=== PATIENT | male | born 2000 | race American Indian/Alaskan Native ===

== ENCOUNTER 2018-02-06 16:45 | Emergency (ER) | payer SELFPAY ==
[2018-02-06 16:52] VITALS: BP 144/68
--- NOTE | 2018-02-06 20:03 | Emergency Department Report ---
ED Abdominal Pain HPI - General Chief Complaint: Abdominal Pain Stated Complaint: ABD PAIN Time Seen by Provider: 02/06/18 19:20 Source: patient Mode of arrival: Ambulatory Limitations: No Limitations - History of Present Illness Initial Comments: This is a 17-year-old -Maur[place] male who presents with umbilical pain for one week. He went to [facility] last Wednesday with bilateral groin pain and diagnosed with urethritis. He was started on doxycycline for 10 days and currently taking medication. Patient reports last bowel movement was last Wednesday and is belly pain started last Wednesday. Patient reports it is very tender to touch around the umbilicus area and pain is radiating to right flank. He is having sharp pains that are radiating to right flank. Pain is 8 out of 10 on pain scale and intermittent. Denies nausea or vomiting, chest pain , burning sensation, diarrhea, and fever. MD Complaint: abdominal pain (umbilicus pain), flank pain (right flank) -: week(s) (one week) Location: periumbilical Radiation: R flank Migration to: no migration Severity: moderate Severity scale (0 -10): 8 Quality: aching, sharp Improves With: nothing Worsens With: movement Context: recent antibiotic use Associated Symptoms: denies other symptoms. denies: nausea, vomiting, diarrhea , fever, constipation, dysuria Treatments Prior to Arrival: other (currently taking doxycycline) - Related Data Previous Rx's Medication Instructions Recorded Last Taken Type Naproxen [Naprosyn] 500 mg PO Q6H PRN #20 tablet 02/06/18 Unknown Rx Allergies Allergy/AdvReac Type Severity Reaction Status Date / Time No Known Allergies Allergy Unverified 02/06/18 16:46 ED Review of Systems ROS: Stated complaint: ABD PAIN Other details as noted in HPI Constitutional: denies: chills, fever Cardiovascular: denies: chest pain, palpitations Endocrine: no symptoms reported Gastrointestinal: abdominal pain (umbilical pain). denies: nausea, vomiting, diarrhea Genitourinary: denies: urgency, dysuria, frequency, hematuria, discharge Neurological: denies: headache, weakness, paresthesias Psychiatric: denies: anxiety, depression ED Past Medical Hx - Past Medical History Previous Medical History?: No - Surgical History Past Surgical History?: No - Social History Smoking Status: Never Smoker Substance Use Type: None - Medications Home Medications: Home Medications Medication Instructions Recorded Confirmed Last Taken Type Naproxen [Naprosyn] 500 mg PO Q6H PRN #20 tablet 02/06/18 Unknown Rx ED Physical Exam - General Limitations: No Limitations General appearance: alert, in no apparent distress - Respiratory Respiratory exam: Present: normal lung sounds bilaterally. Absent: respiratory distress - Cardiovascular Cardiovascular Exam: Present: regular rate, normal rhythm, normal heart sounds. Absent: systolic murmur, diastolic murmur, rubs, gallop - GI/Abdominal GI/Abdominal exam: Present: soft, tenderness (around umbilicus), normal bowel sounds. Absent: distended, guarding, rebound, rigid, organomegaly, mass, bruit - Neurological Exam Neurological exam: Present: alert, oriented X3, normal gait - Psychiatric Psychiatric exam: Present: normal affect, normal mood - Skin Skin exam: Present: warm, dry, intact, normal color. Absent: rash ED Course Vital Signs 02/06/18 16:46 Temperature 98.9 F Pulse Rate 90 Respiratory 18 Rate Blood Pressure 144/68 O2 Sat by Pulse 99 Oximetry ED Medical Decision Making - Lab Data Result diagrams: 02/06/18 20:09 02/06/18 20:09 - Radiology Data Radiology results: report reviewed CT of abdomen and pelvis without contrast: No acute intra-abdominal process noted. Small umbilical hernia containing only fat. - Medical Decision Making This is a 17-year-old -Maur[place] male who presents with umbilical pain for one week. Patient examined by me and stable. No distress noted. Vitals stable. Obtain a CMP, CBC, lipase, and CT of abdomen and pelvis without contrast. All labs are remarkable. CT of abdomen impression no acute intra- abdominal process noted. Small umbilical hernia containing only fat. Instructed to take NSAIDs for pain control. Follow-up with primary care provider and gastroenterology. Start naproxen for pain. Discussed plan with patient and he agreed with plan to treat outpatient. Discharged home. Follow up with PCP in 48-72 hours. Critical care attestation.: If time is entered above; I have spent that time in minutes in the direct care of this critically ill patient, excluding procedure time. ED Disposition Clinical Impression: Umbilical pain Umbilical hernia Qualifiers: Obstruction and gangrene presence: without obstruction or gangrene Qualified Code(s): K42.9 - Umbilical hernia without obstruction or gangrene Disposition: TO HOME OR SELFCARE Is pt being admited?: No Does the pt Need Aspirin: No Condition: Stable Instructions: Umbilical Hernia (ED) Additional Instructions: Take naproxen every 6 hours for pain if needed. Follow-up with gastroenterology if symptoms increase. Follow-up with primary care provider in 2-3 days. Return to the ER if severe pain, fever, chest pain, and shortness of breath. Prescriptions: Naproxen [Naprosyn] 500 mg PO Q6H PRN #20 tablet PRN Reason: Pain Referrals: [facility] [Outside] - 3-5 Days [facility] [Outside] - 3-5 Days [facility] [Outside] - 3-5 Days [facility] [Provider Group] - 3-5 Days Time of Disposition: 22:06 Print Language: FRISIAN
[2018-02-06 20:16] LABS: Hematocrit 50.5 % (35.5-45.6); Hemoglobin 16.7 gm/dl (11.8-15.2); Mean Corpuscular HGB Conc 33 % (32-34); Mean Corpuscular Hemoglobin 29 pg (28-32); Mean Corpuscular Volume 86 fl (84-94); Platelet Count 260 K/mm3 (140-440); Red Blood Count 5.86 M/mm3 (3.65-5.03); Red Cell Distribution Width 12.6 % (13.2-15.2)
[2018-02-06 20:45] LABS: Alanine Aminotransferase 32 units/L (7-56); Albumin 4.5 g/dL (3.9-5); BUN/Creatinine Ratio 13; Blood Urea Nitrogen 10 mg/dL (9-20); Calcium 9.8 mg/dL (8.4-10.2); Hemolysis Index 3; Lipase 40 units/L (13-60)
--- NOTE | 2018-02-06 21:00 | Cat Scan Report ---
FINAL REPORT EXAM: CT ABDOMEN PELVIS WO CON HISTORY: umbilical tenderness TECHNIQUE: Standard unenhanced CT of the abdomen and pelvis. Coronal and sagittal reconstruction was also performed. PRIORS: None. FINDINGS: Within the abdomen, the liver, spleen, pancreas, gallbladder, adrenal glands, and kidneys are unremarkable. No evidence for retroperitoneal or pelvic lymphadenopathy is seen. The bowel loops have normal caliber. No soft tissue mass, fluid collection, inflammatory change, or free air is seen within the abdomen or pelvis. The appendix is normal. There is a small umbilical hernia containing only fat. Within the pelvis, the bladder is unremarkable. The prostate is normal. No evidence for mass or lymphadenopathy is seen in the pelvis. Images through the upper abdomen include the lung bases which are expanded and clear. Bony structures show no focal abnormalities and are intact. IMPRESSION: No acute intra-abdominal process noted. Small umbilical hernia containing only fat.
== END 2018-02-06 22:10 | disposition home or self-care (01) ==
LOC: ED 16:45
DX: K42.9 Umbilical hernia without obstruction or gangrene (principal); R10.33 Periumbilical pain
CPT/HCPCS: 36415; 74176; 80053; 83690; 85027

== ENCOUNTER 2019-05-28 14:38 | Emergency (ER) | payer OTHER ==
--- NOTE | 2019-05-28 14:59 | Event Note ---
ED Screening Note Date of service: 05/28/19 Time: 14:56 ED Screening Note: This is a 18 y.o. M. that presents to the ER with chest pain radiating to back and SOB. PMH of asthma Denies chills, fever, cough, and palpitations. This initial assessment/diagnostic orders/clinical plan/treatment(s) is/are subject to change based on patients health status, clinical progression and re- assessment by fellow clinical providers in the ED. Further treatment and workup at subsequent clinical providers discretion. Patient/guardian urged not to elope from the ED as their condition may be serious if not clinically assessed and managed. Initial orders include: CXR
--- NOTE | 2019-05-28 15:22 | XRay Report ---
CHEST 1 VIEW INDICATION: chest pain. Generalized chest pain for the past 2 weeks COMPARISON: None FINDINGS: Support devices: None. Heart: Within normal limits. Lungs/Pleura: No acute air space or interstitial disease. Additional findings: None. IMPRESSION: 1. No acute findings. Signer Name: Ranjith Sosa MD Signed: 05/28/2019 3:18 PM Workstation Name: [id number]
[2019-05-28] MEDS ORDERED: IBUPROFEN PO ONE (15:57)
[2019-05-28 16:15] LABS: Basophils # (Auto) 0.1 K/mm3 (0.0-0.1); Basophils % (Auto) 1.4 % (0.0-1.8); Eosinophils % (Auto) 0.8 % (0.0-4.3); Hemoglobin 16.9 gm/dl (11.8-15.2); Lymphocytes # (Auto) 2.2 K/mm3 (1.2-5.4); Lymphocytes % (Auto) 47.8 % (13.4-35.0); Mean Corpuscular HGB Conc 34 % (32-34); Mean Corpuscular Volume 87 fl (84-94); Monocytes # (Auto) 0.5 K/mm3 (0.0-0.8); Monocytes % (Auto) 9.8 % (0.0-7.3); Platelet Count 225 K/mm3 (140-440); Red Blood Count 5.73 M/mm3 (3.65-5.03); Red Cell Distribution Width 12.9 % (13.2-15.2)
[2019-05-28 16:34] LABS: BUN/Creatinine Ratio 14; Blood Urea Nitrogen 14 mg/dL (9-20); Calcium 9.7 mg/dL (8.4-10.2); Hemolysis Index 12
--- NOTE | 2019-05-28 17:29 | Emergency Department Report ---
<JOSHUA STOVER - Last Filed: 05/28/19 18:06> ED Chest Pain HPI - General Chief Complaint: Upper Respiratory Infection Stated Complaint: FRANKY/CHEST PAIN Time Seen by Provider: 05/28/19 14:56 Source: patient Mode of arrival: Ambulatory Limitations: No Limitations - History of Present Illness Initial Comments: This is a 18-year-old male nontoxic, well nourished in appearance, no acute signs of distress presents to the ED with c/o of midsternum chest pain, some SOB. Patient also stated that chest pain radiates to back. Patient describes pain as aching intermittently. Patient denies any hemoptysis, fever, chills, nausea, vomiting, headache, stiff neck, numbness, tingling, abdominal pain. Patient denies pleuritic chest pain. Patient denies any recent travels or long car rides. Patient denies any recent surgeries or any sick contacts. Patient denies any drug allergies and PMH. MD Complaint: chest pain -: week(s) (2) Pain Location: substernal Pain Radiation: back Severity: mild Quality: aching Consistency: constant Improves With: nothing Worsens With: other (cough) re: denies: nausea, vomting, diaphoresis, dyspnea, sense of impending doom Other Symptoms: denies: cough, fever, syncope, rash, acid taste in mouth, leg swelling, palpitations, burping Treatments Prior to Arrival: none Aspirin use within the Past 7 Days: (0) No - Related Data Previous Rx's Medication Instructions Recorded Last Taken Type Naproxen [Naprosyn] 500 mg PO Q6H PRN #20 tablet 02/06/18 Unknown Rx Allergies Allergy/AdvReac Type Severity Reaction Status Date / Time No Known Allergies Allergy Unverified 02/06/18 16:46 Heart Score - HEART Score History: Slightly suspicious EKG: Normal Age: < 45 Risk factors: No known risk factors Troponin: < normal limit HEART Score: 0 ED Review of Systems Constitutional: denies: chills, fever Eyes: denies: eye pain, eye discharge, vision change ENT: denies: ear pain, throat pain Respiratory: shortness of breath. denies: cough, wheezing Cardiovascular: chest pain. denies: palpitations Endocrine: no symptoms reported Gastrointestinal: denies: abdominal pain, nausea, diarrhea Genitourinary: denies: urgency, dysuria Musculoskeletal: denies: back pain, joint swelling, arthralgia Skin: denies: rash, lesions Neurological: denies: headache, weakness, paresthesias Psychiatric: denies: anxiety, depression Hematological/Lymphatic: denies: easy bleeding, easy bruising ED Past Medical Hx - Past Medical History Previous Medical History?: No - Surgical History Past Surgical History?: No - Social History Smoking Status: Current Every Day Smoker Substance Use Type: None - Medications Home Medications: Home Medications Medication Instructions Recorded Confirmed Last Taken Type Naproxen [Naprosyn] 500 mg PO Q6H PRN #20 tablet 02/06/18 Unknown Rx ED Physical Exam - General Limitations: No Limitations General appearance: alert, in no apparent distress - Head Head exam: Present: atraumatic, normocephalic - Eye Eye exam: Present: normal appearance - Neck Neck exam: Present: normal inspection, full ROM. Absent: tenderness, meningismus, lymphadenopathy - Respiratory Respiratory exam: Present: normal lung sounds bilaterally. Absent: respiratory distress, wheezes, rales, rhonchi, stridor, chest wall tenderness, accessory muscle use, decreased breath sounds, prolonged expiratory - Cardiovascular Cardiovascular Exam: Present: regular rate, normal rhythm, normal heart sounds. Absent: bradycardia, tachycardia, irregular rhythm, systolic murmur, diastolic murmur, rubs, gallop - Extremities Exam Extremities exam: Present: normal inspection, full ROM - Back Exam Back exam: Present: normal inspection, full ROM. Absent: tenderness, CVA tenderness (R), CVA tenderness (L), muscle spasm, paraspinal tenderness, vertebral tenderness, rash noted - Neurological Exam Neurological exam: Present: alert, oriented X3, normal gait - Psychiatric Psychiatric exam: Present: normal affect, normal mood - Skin Skin exam: Present: warm, dry, intact, normal color. Absent: rash ED Course - Reevaluation(s) Reevaluation #1: 05/28/19 17:27 Patient is speaking in full sentences with no signs of distress noted. - Consultations Consultation #1: 05/28/19 17:45 Patient has been consulted with Gia Mckinney about patient history, physical exam, and labs/EKG results and agrees for d-dimmer and further work-up. Consultation #2: 05/28/19 17:[address] Patient's signout to Dr. Alisha Carmichael for further evaluation and treatment. JUSTIN score - Justin Score Age > 65: (0) No Aspirin use within the Past 7 Days: (0) No 3 or more CAD Risk Factors: (0) No 2 or more Angina events in past 24 hrs: (0) No Known CAD with more than 50% Stenosis: (0) No Elevated Cardiac Markers: (0) No ST Deviation Greater than 0.5mm: (0) No JUSTIN Score: 0 ED Medical Decision Making - Lab Data Result diagrams: 05/28/19 16:03 05/28/19 16:03 - Medical Decision Making 18-year-old male that presents with chest pain and shortness of breath. Patient is currently stable. Patient had a abnormal EKG. Blood work has been obtai mel. Pending a d-dimer. Patient signout to Dr. Carmichael. 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 Return to the emergency department any acute change or worsening. Referrals: PRIMARY MD JAGJIT [Primary Care Provider] - 3-5 Days [facility] [Provider Group] - 3-5 Days AMANDA JEWELL MD [Staff Physician] - 3-5 Days <ALISHA CARMICHAEL - Last Filed: 05/28/19 19:59> ED Chest Pain HPI - History of Present Illness Initial Comments: The patient states that he's had 2 types of chest pain for over a week. It is a soreness in his left chest which is exacerbated by bending or lifting. He states he's able to perform heavy exertion at work ordinarily. However today he came home from work because his chest was sore with movement. He also complained of some shortness of breath which he states is persistent although his pulse oximetry is 100% and his work of breathing is normal. The other type chest pain is more towards the central location and nonradiating nonpleuritic and described as a burning. -: week(s) Pain Radiation: none ED Review of Systems ROS: Stated complaint: FRANKY/CHEST PAIN Other details as noted in HPI ED Course Vital Signs 05/28/19 05/28/19 05/28/19 14:56 18:16 19:00 Temperature 98.5 F Pulse Rate 67 80 77 Respiratory 20 8 L 11 L Rate Blood Pressure 122/68 135/77 128/71 O2 Sat by Pulse 100 100 82 L Oximetry 05/28/19 05/28/19 19:30 19:41 Temperature 98 F Pulse Rate 69 Respiratory 9 L Rate Blood Pressure 132/68 O2 Sat by Pulse 100 Oximetry ED Medical Decision Making - Lab Data Result diagrams: 05/28/19 16:03 05/28/19 16:03 Laboratory Results - last 24 hr 05/28/19 05/28/19 16:03 16:03 WBC 4.7 RBC 5.73 H Hgb 16.9 H Hct 50.0 H MCV 87 MCH 30 MCHC 34 RDW 12.9 L Plt Count 225 Lymph % (Auto) 47.8 H [place] % (Auto) 9.8 H Eos % (Auto) 0.8 Baso % (Auto) 1.4 Lymph # 2.2 [place] # 0.5 Eos # 0.0 Baso # 0.1 Seg Neutrophils % 40.2 Seg Neutrophils # 1.9 Sodium 138 Potassium 4.6 Chloride 99.5 Carbon Dioxide 25 Anion Gap 18 BUN 14 Creatinine 1.0 Estimated GFR > 60 BUN/Creatinine Ratio 14 Glucose 90 Calcium 9.7 Troponin T < 0.010 Laboratory Results - last 24 hr 05/28/19 05/28/19 16:03 16:03 WBC 4.7 RBC 5.73 H Hgb 16.9 H Hct 50.0 H MCV 87 MCH 30 MCHC 34 RDW 12.9 L Plt Count 225 Lymph % (Auto) 47.8 H [place] % (Auto) 9.8 H Eos % (Auto) 0.8 Baso % (Auto) 1.4 Lymph # 2.2 [place] # 0.5 Eos # 0.0 Baso # 0.1 Seg Neutrophils % 40.2 Seg Neutrophils # 1.9 Sodium 138 Potassium 4.6 Chloride 99.5 Carbon Dioxide 25 Anion Gap 18 BUN 14 Creatinine 1.0 Estimated GFR > 60 BUN/Creatinine Ratio 14 Glucose 90 Calcium 9.7 Troponin T < 0.010 Laboratory Results - last 24 hr 05/28/19 05/28/19 16:03 16:03 WBC 4.7 RBC 5.73 H Hgb 16.9 H Hct 50.0 H MCV 87 MCH 30 MCHC 34 RDW 12.9 L Plt Count 225 Lymph % (Auto) 47.8 H [place] % (Auto) 9.8 H Eos % (Auto) 0.8 Baso % (Auto) 1.4 Lymph # 2.2 [place] # 0.5 Eos # 0.0 Baso # 0.1 Seg Neutrophils % 40.2 Seg Neutrophils # 1.9 Sodium 138 Potassium 4.6 Chloride 99.5 Carbon Dioxide 25 Anion Gap 18 BUN 14 Creatinine 1.0 Estimated GFR > 60 BUN/Creatinine Ratio 14 Glucose 90 Calcium 9.7 Troponin T < 0.010 Laboratory Results - last 24 hr 05/28/19 05/28/19 16:03 16:03 WBC 4.7 RBC 5.73 H Hgb 16.9 H Hct 50.0 H MCV 87 MCH 30 MCHC 34 RDW 12.9 L Plt Count 225 Lymph % (Auto) 47.8 H [place] % (Auto) 9.8 H Eos % (Auto) 0.8 Baso % (Auto) 1.4 Lymph # 2.2 [place] # 0.5 Eos # 0.0 Baso # 0.1 Seg Neutrophils % 40.2 Seg Neutrophils # 1.9 Sodium 138 Potassium 4.6 Chloride 99.5 Carbon Dioxide 25 Anion Gap 18 BUN 14 Creatinine 1.0 Estimated GFR > 60 BUN/Creatinine Ratio 14 Glucose 90 Calcium 9.7 Troponin T < 0.010 Laboratory Results - last 24 hr 05/28/19 05/28/19 05/28/19 04:34 16:03 16:03 WBC 4.7 RBC 5.73 H Hgb 16.9 H Hct 50.0 H MCV 87 MCH 30 MCHC 34 RDW 12.9 L Plt Count 225 Lymph % (Auto) 47.8 H [place] % (Auto) 9.8 H Eos % (Auto) 0.8 Baso % (Auto) 1.4 Lymph # 2.2 [place] # 0.5 Eos # 0.0 Baso # 0.1 Seg Neutrophils % 40.2 Seg Neutrophils # 1.9 PT 13.2 INR 1.03 Sodium 138 Potassium 4.6 Chloride 99.5 Carbon Dioxide 25 Anion Gap 18 BUN 14 Creatinine 1.0 Estimated GFR > 60 BUN/Creatinine Ratio 14 Glucose 90 Calcium 9.7 Troponin T < 0.010 Laboratory Results - last 24 hr 05/28/19 05/28/19 05/28/19 04:34 16:03 16:03 WBC 4.7 RBC 5.73 H Hgb 16.9 H Hct 50.0 H MCV 87 MCH 30 MCHC 34 RDW 12.9 L Plt Count 225 Lymph % (Auto) 47.8 H [place] % (Auto) 9.8 H Eos % (Auto) 0.8 Baso % (Auto) 1.4 Lymph # 2.2 [place] # 0.5 Eos # 0.0 Baso # 0.1 Seg Neutrophils % 40.2 Seg Neutrophils # 1.9 PT 13.2 INR 1.03 APTT 26.4 Sodium 138 Potassium 4.6 Chloride 99.5 Carbon Dioxide 25 Anion Gap 18 BUN 14 Creatinine 1.0 Estimated GFR > 60 BUN/Creatinine Ratio 14 Glucose 90 Calcium 9.7 Troponin T < 0.010 05/28/19 18:12 WBC RBC Hgb Hct MCV MCH MCHC RDW Plt Count Lymph % (Auto) [place] % (Auto) Eos % (Auto) Baso % (Auto) Lymph # [place] # Eos # Baso # Seg Neutrophils % Seg Neutrophils # PT INR APTT Sodium Potassium Chloride Carbon Dioxide Anion Gap BUN Creatinine Estimated GFR BUN/Creatinine Ratio Glucose Calcium Troponin T < 0.010 Laboratory Results - last 24 hr 05/28/19 05/28/19 05/28/19 04:34 16:03 16:03 WBC 4.7 RBC 5.73 H Hgb 16.9 H Hct 50.0 H MCV 87 MCH 30 MCHC 34 RDW 12.9 L Plt Count 225 Lymph % (Auto) 47.8 H [place] % (Auto) 9.8 H Eos % (Auto) 0.8 Baso % (Auto) 1.4 Lymph # 2.2 [place] # 0.5 Eos # 0.0 Baso # 0.1 Seg Neutrophils % 40.2 Seg Neutrophils # 1.9 PT 13.2 INR 1.03 APTT 26.4 Sodium 138 Potassium 4.6 Chloride 99.5 Carbon Dioxide 25 Anion Gap 18 BUN 14 Creatinine 1.0 Estimated GFR > 60 BUN/Creatinine Ratio 14 Glucose 90 Calcium 9.7 Troponin T < 0.010 05/28/19 18:12 WBC RBC Hgb Hct MCV MCH MCHC RDW Plt Count Lymph % (Auto) [place] % (Auto) Eos % (Auto) Baso % (Auto) Lymph # [place] # Eos # Baso # Seg Neutrophils % Seg Neutrophils # PT INR APTT Sodium Potassium Chloride Carbon Dioxide Anion Gap BUN Creatinine Estimated GFR BUN/Creatinine Ratio Glucose Calcium Troponin T < 0.010 Laboratory Results - last 24 hr 05/28/19 05/28/19 05/28/19 04:34 16:03 16:03 WBC 4.7 RBC 5.73 H Hgb 16.9 H Hct 50.0 H MCV 87 MCH 30 MCHC 34 RDW 12.9 L Plt Count 225 Lymph % (Auto) 47.8 H [place] % (Auto) 9.8 H Eos % (Auto) 0.8 Baso % (Auto) 1.4 Lymph # 2.2 [place] # 0.5 Eos # 0.0 Baso # 0.1 Seg Neutrophils % 40.2 Seg Neutrophils # 1.9 PT 13.2 INR 1.03 APTT 26.4 Sodium 138 Potassium 4.6 Chloride 99.5 Carbon Dioxide 25 Anion Gap 18 BUN 14 Creatinine 1.0 Estimated GFR > 60 BUN/Creatinine Ratio 14 Glucose 90 Calcium 9.7 Troponin T < 0.010 05/28/19 18:12 WBC RBC Hgb Hct MCV MCH MCHC RDW Plt Count Lymph % (Auto) [place] % (Auto) Eos % (Auto) Baso % (Auto) Lymph # [place] # Eos # Baso # Seg Neutrophils % Seg Neutrophils # PT INR APTT Sodium Potassium Chloride Carbon Dioxide Anion Gap BUN Creatinine Estimated GFR BUN/Creatinine Ratio Glucose Calcium Troponin T < 0.010 Laboratory Results - last 24 hr 05/28/19 05/28/19 05/28/19 04:34 16:03 16:03 WBC 4.7 RBC 5.73 H Hgb 16.9 H Hct 50.0 H MCV 87 MCH 30 MCHC 34 RDW 12.9 L Plt Count 225 Lymph % (Auto) 47.8 H [place] % (Auto) 9.8 H Eos % (Auto) 0.8 Baso % (Auto) 1.4 Lymph # 2.2 [place] # 0.5 Eos # 0.0 Baso # 0.1 Seg Neutrophils % 40.2 Seg Neutrophils # 1.9 PT 13.2 INR 1.03 APTT 26.4 D-Dimer < 135 Sodium 138 Potassium 4.6 Chloride 99.5 Carbon Dioxide 25 Anion Gap 18 BUN 14 Creatinine 1.0 Estimated GFR > 60 BUN/Creatinine Ratio 14 Glucose 90 Calcium 9.7 Troponin T < 0.010 05/28/19 18:12 WBC RBC Hgb Hct MCV MCH MCHC RDW Plt Count Lymph % (Auto) [place] % (Auto) Eos % (Auto) Baso % (Auto) Lymph # [place] # Eos # Baso # Seg Neutrophils % Seg Neutrophils # PT INR APTT D-Dimer Sodium Potassium Chloride Carbon Dioxide Anion Gap BUN Creatinine Estimated GFR BUN/Creatinine Ratio Glucose Calcium Troponin T < 0.010 - EKG Data -: EKG Interpreted by Wy EKG shows normal: sinus rhythm (sinus arrhythmia) Rate: normal - EKG Data Interpretation: other (early repolarization) - Radiology Data Radiology results: report reviewed (no acute process), image reviewed Critical care attestation.: If time is entered above; I have spent that time in minutes in the direct care of this critically ill patient, excluding procedure time. ED Disposition Is pt being admited?: No Does the pt Need Aspirin: No Time of Disposition: 19:54
[2019-05-28 19:00] LABS: INR 1.03 (0.87-1.13)
[2019-05-28 19:20] LABS: Partial Thromboplastin Time 26.4 Sec. (24.2-36.6)
[2019-05-28 20:03] VITALS: BP 133/74
== END 2019-05-28 20:11 | disposition home or self-care (01) ==
LOC: ED 14:38
DX: I49.9 Cardiac arrhythmia, unspecified (principal); F17.200 Nicotine dependence, unspecified, uncomplicated; Z79.899 Other long term (current) drug therapy
CPT/HCPCS: 36415; 71045; 80048; 84484; 85025; 85379; 85610; 85730; 93005; 93010; 99284

== ENCOUNTER 2021-04-18 08:45 | Emergency (ER) | payer OTHER ==
[2021-04-18 09:43] VITALS: BP 143/86
--- NOTE | 2021-04-18 12:37 | Emergency Department Report ---
- General Chief Complaint: Dyspnea/Respdistress Stated Complaint: COVID +/COUGH/CP Time Seen by Provider: 04/18/21 12:33 Source: patient Mode of arrival: Ambulatory Limitations: No Limitations - History of Present Illness Initial Comments: Patient is a 20-year-old male presents emergency room with complaints of a cough that began 6 days ago. States he is currently positive for COVID-19. He did not receive COVID-19 vaccination. He has associated chest congestion and chest tightness and diarrhea. He denies any fever, pleuritic chest pain, leg swelling, shortness of breath, vomiting. No past medical history. No allergies to medicines. - Related Data Previous Rx's Medication Instructions Recorded Last Taken Type Naproxen [Naprosyn] 500 mg PO Q6H PRN #20 tablet 02/06/18 Unknown Rx Amoxicillin/Potassium Clav 1 each PO BID 7 Days #14 tablet 04/18/21 Unknown Rx [Augmentin 875-125 Tablet] Azithromycin [Zithromax TAB] 250 mg PO QDAY 5 Days #6 tablet 04/18/21 Unknown Rx Benzonatate [Tessalon Perles] 100 mg PO Q8HR PRN #12 capsule 04/18/21 Unknown Rx guaiFENesin ER [Mucinex ER] 600 mg PO Q12H #14 tablet.er 04/18/21 Unknown Rx Allergies Allergy/AdvReac Type Severity Reaction Status Date / Time No Known Allergies Allergy Unverified 02/06/18 16:46 ED Review of Systems ROS: Stated complaint: COVID +/COUGH/CP Other details as noted in HPI Comment: All other systems reviewed and negative ED Past Medical Hx - Past Medical History Previous Medical History?: No - Surgical History Past Surgical History?: No - Social History Smoking Status: Current Every Day Smoker Substance Use Type: None - Medications Home Medications: Home Medications Medication Instructions Recorded Confirmed Last Taken Type Naproxen [Naprosyn] 500 mg PO Q6H PRN #20 tablet 02/06/18 Unknown Rx Amoxicillin/Potassium Clav 1 each PO BID 7 Days #14 tablet 04/18/21 Unknown Rx [Augmentin 875-125 Tablet] Azithromycin [Zithromax TAB] 250 mg PO QDAY 5 Days #6 tablet 04/18/21 Unknown Rx Benzonatate [Tessalon Perles] 100 mg PO Q8HR PRN #12 capsule 04/18/21 Unknown Rx guaiFENesin ER [Mucinex ER] 600 mg PO Q12H #14 tablet.er 04/18/21 Unknown Rx ED Physical Exam - General Limitations: No Limitations General appearance: alert, in no apparent distress - Head Head exam: Present: atraumatic, normocephalic - Eye Eye exam: Present: normal appearance - ENT ENT exam: Present: mucous membranes moist - Respiratory Respiratory exam: Present: normal lung sounds bilaterally. Absent: respiratory distress, wheezes, rales, rhonchi, stridor, chest wall tenderness, accessory muscle use, decreased breath sounds, prolonged expiratory - Cardiovascular Cardiovascular Exam: Present: regular rate, normal rhythm, normal heart sounds. Absent: systolic murmur, diastolic murmur, rubs, gallop - Neurological Exam Neurological exam: Present: alert, oriented X3 - Psychiatric Psychiatric exam: Present: normal affect, normal mood - Skin Skin exam: Present: warm, dry, intact ED Course Vital Signs 04/18/21 09:42 Temperature 98.2 F Pulse Rate 69 Respiratory 18 Rate Blood Pressure 143/86 [Right] O2 Sat by Pulse 98 Oximetry ED Medical Decision Making - Radiology Data Radiology results: report reviewed Ordering Physician: DENA MATHIS Date of Service: 04/18/21 Procedure(s): XR chest routine 2V Accession Number(s): [id number] cc: DENA MATHIS Fluoro Time In Minutes: CHEST PA AND LATERAL VIEWS INDICATION: cough, chest tightness. COMPARISON: 05/28/2019. FINDINGS: Support devices: None. Heart: Within normal limits. Lungs/Pleura: Within the inferior right upper lobe there is mild peribronchovascular reticular disease. Left lung is clear. No pleural abnormality. IMPRESSION: 1. Probable mild lower airways disease in the inferior right upper lobe. Signer Name: Benny Thompson MD Signed: 04/18/2021 1:16 PM Workstation Name: [id number] Transcribed By: KENNETH Dictated By: Benny Thompson MD Electronically Authenticated By: Benny Thompson MD Signed Date/Time: 04/18/21 1316 DD/ 1315 TD/TT: Print - Medical Decision Making Patient is a 20-year-old male presents emergency room with complaints of a cough that began 6 days ago. States he is currently positive for COVID-19. He did not receive COVID-19 vaccination. He has associated chest congestion and chest tightness and diarrhea. He denies any fever, pleuritic chest pain, leg swelling, shortness of breath, vomiting. No past medical history. No allergies to medicines. VSS. No abnormality on physical examination as documented chart. Chest x-ray: 1. Probable mild lower airways disease in the inferior right upper lobe. Patient is afebrile, no hypoxia, no tachycardia. Discussed all results with patient. Patient does not meet admission criteria for COVID-19 at this time. Discussed very strict return precautions with patient. Patient given prescription for medication. Advised patient Please take medication as prescribed. Follow-up with your primary care doctor. Please self quarantine from 10 days from the onset of your symptoms. Return to emergency room immediat carlo for any new or worsening symptoms including but not limited to worsening chest pain, shortness of breath, vomiting, unable to tolerate by mouth intake, etc. Critical care attestation.: If time is entered above; I have spent that time in minutes in the direct care of this critically ill patient, excluding procedure time. ED Disposition Clinical Impression: COVID-19 PNA (pneumonia) Qualifiers: Pneumonia type: due to unspecified organism Laterality: right Lung location: upper lobe of lung Qualified Code(s): J18.9 - Pneumonia, unspecified organism Disposition: DC-01 TO HOME OR SELFCARE Is pt being admited?: No Does the pt Need Aspirin: No Condition: Stable Instructions: COVID-19, Community-Acquired Pneumonia, Adult, Bacterial Pneumonia (ED) Additional Instructions: Please take medication as prescribed. Follow-up with your primary care doctor. Please self quarantine from 10 days from the onset of your symptoms. Return to emergency room immediately for any new or worsening symptoms including but not limited to worsening chest pain, shortness of breath, vomiting, unable to tolerate by mouth intake, etc. Prescriptions: Amoxicillin/Potassium Clav [Augmentin 875-125 Tablet] 1 each PO BID 7 Days #14 tablet guaiFENesin ER [Mucinex ER] 600 mg PO Q12H #14 tablet.er Benzonatate [Tessalon Perles] 100 mg PO Q8HR PRN #12 capsule PRN Reason: cough Azithromycin [Zithromax TAB] 250 mg PO QDAY 5 Days #6 tablet Referrals: CARBUCCIA,MURRAY, MD [Staff Physician] - 2-3 Days [facility] [Provider Group] - 2-3 Days Time of Disposition: 13:26 Print Language: SERBIAN
--- NOTE | 2021-04-18 13:20 | XRay Report ---
CHEST PA AND LATERAL VIEWS INDICATION: cough, chest tightness. COMPARISON: 05/28/2019. FINDINGS: Support devices: None. Heart: Within normal limits. Lungs/Pleura: Within the inferior right upper lobe there is mild peribronchovascular reticular diseas e. Left lung is clear. No pleural abnormality. IMPRESSION: 1. Probable mild lower airways disease in the inferior right upper lobe. Signer Name: Benny Thompson MD Signed: 04/18/2021 1:16 PM Workstation Name: [id number]
== END 2021-04-18 13:52 | disposition home or self-care (01) ==
LOC: ED 08:45
DX: U07.1 COVID-19 (principal); J18.9 Pneumonia, unspecified organism; F17.200 Nicotine dependence, unspecified, uncomplicated; Z79.899 Other long term (current) drug therapy
CPT/HCPCS: 71046

== ENCOUNTER 2021-05-15 16:00 | Emergency (ER) | payer OTHER ==
--- NOTE | 2021-05-15 16:29 | Event Note ---
ED Screening Note Date of service: 05/15/21 Time: 16:28 ED Screening Note: 20-year-old -[place] male presents to the emergency room complaining of chest pressure and pain that radiates to the right side of his chest. Patient reports he tested positive for Covid. He retested yesterday and was negative. It was noted that patient is tachycardic. This initial assessment/diagnostic orders/clinical plan/treatment(s) is/are subject to change based on patients health status, clinical progression and re- assessment by fellow clinical providers in the ED. Further treatment and workup at subsequent clinical providers discretion. Patient/guardian urged not to elope from the ED as their condition may be serious if not clinically assessed and managed. Initial orders include: EKG chest x-ray and D-dimer has been ordered.
--- NOTE | 2021-05-15 16:57 | XRay Report ---
CHEST PA AND LATERAL VIEWS INDICATION: CP. COMPARISON: 04/18/2021 FINDINGS: Support devices: None. Heart: Within normal limits. Lungs/Pleura: No acute pulmonary or pleural findings. IMPRESSION: 1. No acute findings. Signer Name: Benny Thompson MD Signed: 05/15/2021 4:53 PM Workstation Name: [id number]
[2021-05-15 18:12] LABS: Basophils # (Auto) 0.1 K/mm3 (0.0-0.1); Basophils % (Auto) 1.2 % (0.0-1.8); Eosinophils % (Auto) 0.5 % (0.0-4.3); Hematocrit 49.7 % (35.5-45.6); Hemoglobin 16.7 gm/dl (11.8-15.2); Lymphocytes # (Auto) 1.4 K/mm3 (1.2-5.4); Lymphocytes % (Auto) 33.5 % (13.4-35.0); Mean Corpuscular HGB Conc 34 % (32-34); Mean Corpuscular Volume 88 fl (84-94); Monocytes # (Auto) 0.4 K/mm3 (0.0-0.8); Monocytes % (Auto) 10.1 % (0.0-7.3); Platelet Count 186 K/mm3 (140-440); Red Blood Count 5.67 M/mm3 (3.65-5.03); Red Cell Distribution Width 12.6 % (13.2-15.2)
[2021-05-15 18:31] LABS: Alanine Aminotransferase 15 units/L (7-56); Albumin 4.4 g/dL (3.9-5); BUN/Creatinine Ratio 12; Blood Urea Nitrogen 11 mg/dL (9-20); Calcium 9.8 mg/dL (8.4-10.2); Hemolysis Index 7
[2021-05-15 19:08] VITALS: BP 121/80
--- NOTE | 2021-05-15 19:08 | Emergency Department Report ---
ED Chest Pain HPI - General Chief Complaint: Chest Pain Stated Complaint: CHEST PAIN/ PRESSURE Time Seen by Provider: 05/15/21 17:42 Source: patient Mode of arrival: Ambulatory Limitations: No Limitations - History of Present Illness Initial Comments: 20 year old male presents to ED with complaints of substernal chest pain. Patient states that his pain started this morning while sitting down on the couch. He described as a fullness/pressure type pain. He states that it was constant initially, but when he got to the ER he started to burp and this seemed to have improved his pain. He states it felt worse when he would lay down. He states he had to get up and move around which somewhat helped. Patient states that when he burps he feels like acid was coming up into his throat. He states that he had "just a little" shortness of breath with his symptoms. He denies any cough, fever, chills, wheezing, nausea, vomiting, diaphoresis or radiation o f the pain. He denies any lower extremity swelling or calf pain. Patient was diagnosed with COVID-19 back in beginning of April at the time he was prescribed medications which she did complete. He states that he used to smoke but he stopped smoking tobacco 3 years ago. He denies any illicit drug use, alcohol abuse, or any other underlying significant past history. MD Complaint: chest pain -: Gradual, This morning Onset: during rest Pain Location: substernal - Related Data Previous Rx's Medication Instructions Recorded Last Taken Type Naproxen [Naprosyn] 500 mg PO Q6H PRN #20 tablet 02/06/18 Unknown Rx Amoxicillin/Potassium Clav 1 each PO BID 7 Days #14 tablet 04/18/21 Unknown Rx [Augmentin 875-125 Tablet] Azithromycin [Zithromax TAB] 250 mg PO QDAY 5 Days #6 tablet 04/18/21 Unknown Rx Benzonatate [Tessalon Perles] 100 mg PO Q8HR PRN #12 capsule 04/18/21 Unknown Rx guaiFENesin ER [Mucinex ER] 600 mg PO Q12H #14 tablet.er 04/18/21 Unknown Rx Famotidine [Pepcid] 20 mg PO BID #30 tablet 05/15/21 Unknown Rx Pantoprazole [Protonix] 40 mg PO QDAY #30 tablet 05/15/21 Unknown Rx Allergies Allergy/AdvReac Type Severity Reaction Status Date / Time No Known Allergies Allergy Verified 05/15/21 16:11 Heart Score - HEART Score History: Slightly suspicious EKG: Non-specific Age: < 45 Risk factors: No known risk factors Troponin: < normal limit HEART Score: 1 - EKG Read Time Time EKG Completed: 16:29 EKG Read Time: 16:30 ED Review of Systems ROS: Stated complaint: CHEST PAIN/ PRESSURE Other details as noted in HPI Comment: All other systems reviewed and negative Constitutional: denies: chills, fever Eyes: denies: eye pain, eye discharge, vision change ENT: denies: ear pain, throat pain, dental pain, hearing loss, epistaxis, congestion Respiratory: shortness of breath ("a little" ). denies: cough, orthopnea, SOB with exertion, SOB at rest, stridor, wheezing Cardiovascular: chest pain. denies: palpitations, dyspnea on exertion, orthopnea, edema, syncope, paroxysmal nocturnal dyspnea Gastrointestinal: denies: abdominal pain, nausea, diarrhea, constipation, hematemesis, melena, hematochezia Genitourinary: denies: urgency, dysuria, frequency, hematuria, discharge, testicular pain, testicular mass Musculoskeletal: denies: back pain, joint swelling, arthralgia Skin: denies: rash, lesions, change in color, change in hair/nails, pruritus Neurological: denies: headache, weakness, numbness, paresthesias, confusion, abnormal gait, vertigo Psychiatric: denies: anxiety, depression, auditory hallucinations, visual hallucinations, homicidal thoughts, suicidal thoughts Hematological/Lymphatic: denies: easy bleeding, easy bruising, swollen glands ED Past Medical Hx - Past Medical History Previous Medical History?: No - Surgical History Past Surgical History?: No - Social History Smoking Status: Never Smoker Substance Use Type: Alcohol - Medications Home Medications: Home Medications Medication Instructions Recorded Confirmed Last Taken Type Naproxen [Naprosyn] 500 mg PO Q6H PRN #20 tablet 02/06/18 Unknown Rx Amoxicillin/Potassium Clav 1 each PO BID 7 Days #14 tablet 04/18/21 Unknown Rx [Augmentin 875-125 Tablet] Azithromycin [Zithromax TAB] 250 mg PO QDAY 5 Days #6 tablet 04/18/21 Unknown Rx Benzonatate [Tessalon Perles] 100 mg PO Q8HR PRN #12 capsule 04/18/21 Unknown Rx guaiFENesin ER [Mucinex ER] 600 mg PO Q12H #14 tablet.er 04/18/21 Unknown Rx Famotidine [Pepcid] 20 mg PO BID #30 tablet 05/15/21 Unknown Rx Pantoprazole [Protonix] 40 mg PO QDAY #30 tablet 05/15/21 Unknown Rx ED Physical Exam - General Limitations: No Limitations General appearance: alert, in no apparent distress - Head Head exam: Present: atraumatic, normocephalic, normal inspection - Eye Eye exam: Present: normal appearance, PERRL, EOMI Pupils: Present: normal accommodation - ENT ENT exam: Present: normal exam, mucous membranes moist - Neck Neck exam: Present: normal inspection, full ROM - Respiratory Respiratory exam: Present: normal lung sounds bilaterally. Absent: respiratory distress, wheezes, rales, rhonchi, stridor - Cardiovascular Cardiovascular Exam: Present: regular rate, normal rhythm, normal heart sounds - GI/Abdominal GI/Abdominal exam: Present: soft. Absent: distended, tenderness, guarding, rebound - Extremities Exam Extremities exam: Present: normal inspection. Absent: normal capillary refill, pedal edema, calf tenderness - Neurological Exam Neurological exam: Present: alert, oriented X3, CN II-XII intact, normal gait - Psychiatric Psychiatric exam: Present: normal affect, normal mood - Skin Skin exam: Present: intact ED Course Vital Signs 05/15/21 05/15/21 05/15/21 16:16 19:04 19:05 Temperature 98.5 F 98.4 F Pulse Rate 124 H 91 H 106 H Respiratory 20 20 Rate Blood Pressure 130/78 121/80 O2 Sat by Pulse 100 98 99 Oximetry JUSTIN score - Justin Score Age > 65: (0) No Aspirin use within the Past 7 Days: (0) No 3 or more CAD Risk Factors: (0) No 2 or more Angina events in past 24 hrs: (0) No Known CAD with more than 50% Stenosis: (0) No Elevated Cardiac Markers: (0) No ST Deviation Greater than 0.5mm: (0) No JUSTIN Score: 0 ED Medical Decision Making - Lab Data Result diagrams: 05/15/21 17:49 05/15/21 17:49 - EKG Data EKG shows normal: sinus rhythm Rate: normal (83) - EKG Data When compared to previous EKG there are: no significant change (05/28/2019) Interpretation: no acute changes - Radiology Data Radiology results: report reviewed Patient: SERA HARRY MR#: [id number] : 2000 Acct:[id number] Age/Sex: 20 / M ADM Date: 05/15/21 Loc: ED Attending Dr: Ordering Physician: MIAH VAZQUEZ MD Date of Service: 05/15/21 Procedure(s): XR chest routine 2V Accession Number(s): [id number] cc: ED MD GEORGE Fluoro Time In Minutes: CHEST PA AND LATERAL VIEWS INDICATION: CP. COMPARISON: 04/18/2021 FINDINGS: Support devices: None. Heart: Within normal limits. Lungs/Pleura: No acute pulmonary or pleural findings. IMPRESSION: 1. No acute findings. Signer Name: Benny Thompson MD Signed: 05/15/2021 4:53 PM Workstation Name: [id number] Transcribed By: SW Dictated By: Benny Thompson MD Electronically Authenticated By: Benny Thompson MD Signed Date/Time: 05/15/211652 DD/ 52 TD/TT: - Medical Decision Making 20 year old male presents to ED with complaints of substernal chest pain. Patient states that his pain started this morning while sitting down on the couch. He described as a fullness/pressure type pain. He states that it was constant initially, but when he got to the ER he started to burp and this seemed to have improved his pain. He states it felt worse when he would lay down. He states he had to get up and move around which somewhat helped. Patient states that when he burps he feels like acid was coming up into his throat. He states that he had "just a little" shortness of breath with his symptoms. He denies any cough, fever, chills, wheezing, nausea, vomiting, diaphoresis or radiation of the pain. He denies any lower extremity swelling or calf pain. Patient was diagnosed with COVID-19 back in beginning of April at the time he was prescribed medications which she did complete. He states that he used to smoke but he stopped smoking tobacco 3 years ago. He denies any illicit drug use, alcohol abuse, or any other underlying significant past history. 1937: All labs reviewed -- CBC and CMP unremarkable. Trop negative. D-Dimer normal. EKG shows no stemi, or acute ischemic changes and when compared to previous EKG, there was no difference. CXR shows nothing acute. Repeat VS show improved HR, and remaining VS stable. Patient is well appearing, not toxic and not in any acute pain or respiratory distress. His history, exam, diagnostic testing and current condition do not suggest that this patient is having acute myocardial infarction, significant arrhythmia, unstable angina, esophageal perforation, pulmonary embolism (PERC 0), aortic dissection, pneumothorax, severe pneumonia, sepsis or other significant pathology that would warrant further testing, continued ED treatment, admission or cardiology or other specialist consultation at this time. Pt may be having reflux. Discussed all labs, cxr and ekg with patient. DIscussed suspected dx with patient. Pt expressed understanding of all instructions. Pt was stable at time of discharge. Critical care attestation.: If time is entered above; I have spent that time in minutes in the direct care o f this critically ill patient, excluding procedure time. ED Disposition Clinical Impression: Nonspecific chest pain, GERD (gastroesophageal reflux disease) Disposition: 01 HOME / SELF CARE / HOMELESS Is pt being admited?: No Does the pt Need Aspirin: No Condition: Stable Instructions: Food Choices for Gastroesophageal Reflux Disease, Adult, Nonspecific Chest Pain, Adult, [id number], Gastroesophageal Reflux Disease, Adult, [id number] Additional Instructions: I recommend that you take the pepcid and the protonix as prescribed. I recommend that you follow the food choices for reflux disease listed on your discharge instructions. Follow up closely with PCP but return to ED if symptoms changes or worsens in anyway. Prescriptions: Famotidine [Pepcid] 20 mg PO BID #30 tablet Pantoprazole [Protonix] 40 mg PO QDAY #30 tablet Referrals: [facility] [Provider Group] - 3-5 Days Time of Disposition: 19:20
== END 2021-05-15 19:40 | disposition home or self-care (01) ==
LOC: ED 16:00
DX: K21.9 Gastro-esophageal reflux disease without esophagitis (principal); R07.89 Other chest pain; Z79.899 Other long term (current) drug therapy
CPT/HCPCS: 36415; 71046; 80053; 84484; 85025; 85379; 93005